=== PATIENT | male | born 1970 | race Caucasian/White ===

== ENCOUNTER → 2016-12-08 | Outpatient (CLI) | payer BC ==
[2016-12-08 09:23] LABS: CHLORIDE,CL 106 mmol/L (98-110); SODIUM,NA 141 mmol/L (136-146)
== END ==
LOC: MW.CHFP 08:30
PROVIDERS: ATTEND Physician Assistant
DX: I10 Essential (primary) hypertension (principal)
CPT/HCPCS: 36415; 80048

== ENCOUNTER 2017-10-30 00:10 | Emergency (ER) | payer BC ==
[2017-10-30] MEDS ORDERED: Proparacaine 0.5% Ophth Soln 15 ML Bottle EYERT ONE (00:17)
--- NOTE | 2017-10-30 00:19 | EDM.PDOC ---
ED HPI GENERAL MEDICAL PROBLEM - General Chief Complaint: Eye Problems Stated Complaint: PAIN RT EYE Time Seen by Provider: 10/30/17 00:20 - History of Present Illness INITIAL COMMENTS - FREE TEXT/NARRATIVE: HISTORY AND PHYSICAL: History of present illness: The patient is a 46-year-old male who presents with complaints of a possible foreign body in his right eye that occurred while he was working under a sink at home approximately 3-1/2 hours ago. The patient says he has not had a formal eye exam in some and does not wear glasses or contacts and was in his usual state of good health prior to these events. He said he was working on a high under a sink and he felt some debris go into his eye face and he quickly try to irrigate with tap water and did not seem to get much relief. He kept doing that with a cup and did that 8 or 10 times and did not feel like he got much relief but noted that his eye was hurting more in a generalized fashion and was much more red. Bilateral eyes have been irritated since that time and he is rubbing both of them but more the right eye. He has no left eye pain. He has no visual changes or blurred vision. He has no headache or other facial/head trauma. Review of systems: As per history of present illness and below otherwise all systems reviewed and negative. Past medical history: As per history of present illness and as reviewed below otherwise noncontributory. Surgical history: As per history of present illness and as reviewed below otherwise noncontributory. Social history: No reported history of drug or alcohol abuse. Family history: As per history of present illness and as reviewed below otherwise noncontributory. Physical exam: General: Well-developed well-nourished man who is nontoxic and vital signs are reviewed by me. Patient is not photophobic and his eyes are open on my evaluation. There is no facial swelling or periorbital swelling. HEENT: Atraumatic, normocephalic, pupils reactive, EOMs are intact, eyelids and periorbital areas are normal with only minimal upper eyelid swelling on the right, sclera are injected bilaterally right is very beefy left is more mild negative for conjunctival pallor or scleral icterus, mucous membranes moist, throat clear, neck supple, nontender, trachea midline. There is no gross foreign body seen on inspection of the right eye. Lungs: Clear to auscultation, breath sounds equal bilaterally, chest nontender. Heart: S1S2, regular rate and rhythm no overt murmurs Abdomen: Soft, nondistended, nontender. NABS Pelvis: Deferred Genitourinary: Deferred. Rectal: Deferred. Extremities: Atraumatic, negative for cords or calf pain. Neurovascular unremarkable. Neuro: Awake, alert, oriented. Cranial nerves II through XII unremarkable. Cerebellum unremarkable. Motor and sensory unremarkable throughout. Exam nonfocal. Gait was normal into the ED Diagnostics: Visual acuity which when done with nursing was 20/20 right eye 20/20 left eye and 20/20 both eyes Therapeutics: Proparacaine, Tdap Tober defects After proparacaine was infused fluoroscein stain was performed and there was no uptake in either eye. More thorough examination and scanning for a foreign body was performed and no foreign body was appreciated in the right eye. Eyelid was flipped and again no foreign body was a appreciated. A Esvin lens will be placed by nursing and irrigation was performed and reevaluation will be done. After irrigation of 500 mL of normal saline I reevaluated the patient and I still see no foreign body underneath the eyelids nor in the eye but the patient says he still feels like there is something there. I will discuss this case with Dr. Seay 0130: Dr. Seay was unavailable so I discussed this case with Dr. Larson who is the melter supervisor electric arc furnace fashion merchandiser at [facility]. He recommends that I try some ophthalmologic ointment on a Q-tip and go around the eye itself to see if there are any foreign objects that he is here to it. I have done this procedure with erythromycin ointment and no foreign objects were able to be found. He tolerated this procedure well as well as the prior. As that was unsuccessful Dr. Larson recommended Tobrex eyedrops every 3-4 hours for the first 24 hours and then every 6 hours and ophthalmologic follow-up on Wednesday. I' ve discussed this conversation with the patient and he is aware and will be given the appropriate referrals. Impression: Foreign body sensation to right eye Definitive disposition and diagnosis as appropriate pending reevaluation and review of above. - Related Data Allergies Allergy/AdvReac Type Severity Reaction Status Date / Time No Known Allergies Allergy Verified 10/30/17 00:20 Home Meds: Home Meds Lisinopril 10 mg pe PO DAILY 10/30/17 [History] ED ROS GENERAL - Review of Systems Review Of Systems: ROS reveals no pertinent complaints other than HPI. ED EXAM GENERAL W FULL EYE - Physical Exam Exam: See Below (See dictation) Course - Vital Signs Last Recorded V/S: Last Vital Signs Temp 36.7 C 10/30/17 00:17 Pulse 76 10/30/17 00:17 Resp 12 10/30/17 00:17 BP 142/97 H 10/30/17 00:17 Pulse Ox 96 10/30/17 00:17 - Orders/Labs/Meds Orders: Active Orders 24 hr Category Date Time Status Communication Order [RC] STAT Care 10/30/17 00:16 Active Communication Order [RC] STAT Care 10/30/17 00:32 Active Vaccines to be Administered [RC] PER UNIT ROUTINE Care 10/30/17 00:33 Active Erythromycin Base [Erythromycin 0.5% Ophth Oint] Med 10/30/17 01:40 Once 1 gm .ROUTE .STK-MED ONE Meds: Medications Discontinued Medications Generic Name Dose Route Start Last Admin Trade Name Delmis PRN Reason Stop Dose Admin Diphtheria/Tetanus/Acell Pertussis 0.5 ml 10/30/17 00:32 10/30/17 00:55 Adacel IM 10/30/17 00:33 0.5 ml .ONCE ONE Administration Proparacaine HCl 1 ml 10/30/17 00:17 10/30/17 00:28 Proparacaine 0.5% Ophth Soln EYERT 10/30/17 00:18 2 drop ONETIME ONE Administration Departure - Departure Time of Disposition: 01:48 Disposition: Home, Self-Care 01 Condition: Good Clinical Impression: Sensation of foreign body in eye - Discharge Information Referrals: Nikolai Garay MD [Primary Care Provider] - Forms: ED Department Discharge Additional Instructions: The following information is given to patients seen in the emergency department who are being discharged to home. This information is to outline your options for follow-up care. We provide all patients seen in our emergency department with a follow-up referral. The need for follow-up, as well as the timing and circumstances, are variable depending upon the specifics of your emergency department visit. If you don't have a primary care physician on staff, we will provide you with a referral. We always advise you to contact your personal physician following an emergency department visit to inform them of the circumstance of the visit and for follow-up with them and/or the need for any referrals to a consulting specialist. The emergency department will also refer you to a specialist when appropriate. This referral assures that you have the opportunity for followup care with a specialist. All of these measure are taken in an effort to provide you with optimal care, which includes your followup. Under all circumstances we always encourage you to contact your private physician who remains a resource for coordinating your care. When calling for followup care, please make the office aware that this follow-up is from your recent emergency room visit. If for any reason you are refused follow-up, please contact the [facility] emergency department at and ask to speak to the emergency department charge nurse. [facility] [address] [place] [address] Use eyedrops you have been given here in the ED, Tobrex, every 3-4 hours while your weight for the next 24 hours and then go to every 6 hours. Please call the ophthalmology clinic at [facility] for appointment with one of the melter supervisor electric arc furnace on Wednesday. Return to ER as needed and as discussed. Avoid bright lights and any other trauma to the eye and try to avoid rubbing the eyes. - My Orders Last 24 Hours: My Active Orders 10/30/17 00:16 Communication Order [RC] STAT 10/30/17 00:32 Communication Order [RC] STAT 10/30/17 00:33 Vaccines to be Administered [RC] PER UNIT ROUTINE - Assessment/Plan Last 24 Hours: My Active Orders 10/30/17 00:16 Communication Order [RC] STAT 10/30/17 00:32 Communication Order [RC] STAT 10/30/17 00:33 Vaccines to be Administered [RC] PER UNIT ROUTINE
[2017-10-30] MEDS ORDERED: Diphtheria,Pertussis(Acell),Tetanus Vaccine 0.5 ML Syringe IM ONE (00:32)
[2017-10-30] MEDS ORDERED: Erythromycin Base 0.5% Ophth Oint 1 GM Tube ONE (01:40)
[2017-10-30] MEDS ORDERED: Dexamethasone/Tobramycin 0.1-0.3% Ophth Susp 2.5 ML Bottle ONE (01:42)
[2017-10-30] MEDS ORDERED: Erythromycin Base 0.5% Ophth Oint 1 GM Tube EYERT ONE (01:51)
[2017-10-30] MEDS ORDERED: Dexamethasone/Tobramycin 0.1-0.3% Ophth Oint 3.5 GM Tube EYERT ONE (01:51)
== END 2017-10-30 02:00 | disposition home or self-care (01) ==
LOC: MW.ED 00:10
DX: H57.8 Other specified disorders of eye and adnexa (principal); Z79.899 Other long term (current) drug therapy; Z23 Encounter for immunization
CPT/HCPCS: 90471; 90715; 99283; A9270